=== PATIENT | male | born 1995 | race Caucasian/White ===

== ENCOUNTER 2022-12-30 19:46 | Emergency (ER) | payer SELFPAY ==
[2022-12-30 20:31] VITALS: BP 137/80; PULSE 78; RESP 18; TEMP 98.3; BMI 39.6
[2022-12-30] MEDS ORDERED: TETRACAINE 0.5% OPHTH SOLN 2 ML BOTTLE ONE (21:33)
[2022-12-30] MEDS ORDERED: FLUORESCEIN NA 1 EA STRIP ONE (21:33)
[2022-12-30] MEDS ORDERED: BACITRACIN/POLYMYXIN OPH OINT 3.5 GM TUBE OD ONE (21:54)
== END 2022-12-30 22:12 | disposition home or self-care (01) ==
LOC: JER 19:46 → JERFT 19:46
DX: H10.9 Unspecified conjunctivitis (principal)
CPT/HCPCS: 99283-25

== ENCOUNTER 2023-01-02 06:53 | Emergency (ER) | payer OTHER ==
[2023-01-02 07:23] VITALS: BP 119/71; PULSE 84; RESP 18; TEMP 98.4; BMI 39.6
[2023-01-02] MEDS ORDERED: FLUORESCEIN NA 1 EA STRIP OD ONE (07:58)
[2023-01-02] MEDS ORDERED: TETRACAINE 0.5% HCL 0.6ML DROPPER.BOTTLE OD ONE (07:58)
[2023-01-02] MEDS ORDERED: TETRACAINE 0.5% OPHTH SOLN 2 ML BOTTLE ONE (08:03)
[2023-01-02] MEDS ORDERED: FLUORESCEIN NA 1 EA STRIP ONE (08:03)
== END 2023-01-02 08:57 | disposition home or self-care (01) ==
LOC: JERFT 06:53 → JER 06:53 → JERFT 08:57
DX: H57.11 Ocular pain, right eye (principal)
CPT/HCPCS: 99283-25